=== PATIENT | male | born 1980 | race Two or more races ===

== ENCOUNTER → 2024-05-26 | Outpatient (BNVA) | payer MEDICAID, SELFPAY | END | disposition home or self-care (01) | PROVIDERS: PCP Behavior Technician; Referring Provider Behavior Technician; Visit Provider Urology | DX: N40.1 Benign prostatic hyperplasia with lower urinary tract symptoms (principal); N13.8 Other obstructive and reflux uropathy; Z80.42 Family history of malignant neoplasm of prostate; Z87.440 Personal history of urinary (tract) infections; E78.1 Pure hyperglyceridemia; I10 Essential (primary) hypertension; E66.9 Obesity, unspecified; Z68.41 Body mass index [BMI] 40.0-44.9, adult; F17.210 Nicotine dependence, cigarettes, uncomplicated | CPT/HCPCS: 81003; 99202; G0463 ==

== ENCOUNTER → 2024-10-07 | Day surgery (SDC) | payer MEDICAID, SELFPAY ==
--- NOTE | 2024-10-06 07:00 | EKG_ITS ---
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 : 1980 Requested By: David Falk Order Number: [id number] Reading MD: David Falk Measurements Intervals Sandy Rate: 67 P: 49 MA: 173 QRS: 56 QRSD: 92 T: 51 QT: 362 QTc: 382 Interpretive Statements SINUS RHYTHM No previous ECG available for comparison /store/S0/[id number]/ecg/[id number].pdf
[2024-10-06 10:47] VITALS: BMI 41.5
[2024-10-06 11:13] LABS: Collection Type, Urine Clean Catch; Squamous Epithelial Cell,Urine 0 /hpf (0-5)
[2024-10-06 12:13] LABS: Basophils # (Auto) 0.1 Thou/mm3 (0.0-0.2); Basophils % (Auto) 1 % (0-2.5); Eosinophils # (Auto) 0.1 Thou/mm3 (0.0-0.5); Eosinophils % (Auto) 2 % (0-10); Hematocrit 45.2 % (41.0-53.0); Hemoglobin 15.6 g/dL (13.5-16.0); Immature Granulocytes % (Auto) 0 % (0-0); Immature Granulocytes Auto 0.03 Thou/mm3 (0.00-0.00); Lymphocytes # (Auto) 3.1 Thou/mm3 (1.0-4.8); Lymphocytes % (Auto) 37 % (10-50); Mean Corpuscular HGB Conc 34.5 g/dl (31.0-37.0); Mean Corpuscular Hemoglobin 30.7 pg (25.0-35.0); Mean Corpuscular Volume 89 fL (80-100); Monocytes # (Auto) 0.7 Thou/mm3 (0.0-0.8); Monocytes % (Auto) 8 % (0-12); Neutrophils # (Auto) 4.4 Thou/mm3 (1.8-7.7); Neutrophils % (Auto) 53 % (37-80); Nucleated Red Blood Cell % 0 /100 WBC (0); Platelet Count 273 Thou/mm3 (140-440); RDW Standard Deviation 41.7 fL (35.1-43.9); Red Blood Count 5.08 Miln/mm3 (4.50-5.90); White Blood Count 8.4 Thou/mm3 (3.8-10.6)
[2024-10-06 12:14] LABS: Bilirubin,Urine Negative (Negative); Blood,Urine Negative (Negative); Clarity,Urine Clear (Clear/Hazy); Color,Urine Lt-Yellow (Lt Yel-Yel); Glucose, Urine Negative (Negative); Ketones,Urine Negative (Negative); Leukocyte Esterase,Urine Negative (Negative); Nitrite,Urine Negative (Negative); PH,Urine 6.5 (5.0-7.0); Protein,Urine Negative (Neg - Trace); RBC,Urine < 1 /hpf (0-3); Urobilinogen,Urine Negative mg/dL (0.0-1.0); WBC,Urine < 1 /hpf (0-5)
[2024-10-06 12:43] LABS: Alanine Aminotransferase 16 U/L (10-49); Albumin, Serum 4.4 gm/dL (3.5-5.0); Albumin/Globulin Ratio 1.5 (1.2-2.2); Alkaline Phosphatase 80 U/L (46-116); Anion Gap 10 (7-16); Aspartate Amino Transferase 14 U/L (0-34); BUN/Creatinine Ratio 10 Ratio (12-20); Bilirubin,Total 0.8 mg/dL (0.3-1.2); Blood Urea Nitrogen 10 mg/dL (9-23); Calcium 9.5 mg/dL (8.3-10.6); Calcium (Corrected) 9.5 mg/dL (8.5-10.1); Carbon Dioxide 26.3 mMol/L (20.0-31.0); Chloride 104 mMol/L (98-107); Estimated Creatinine Clearance 125.8 mL/min (>60); Glucose 91 mg/dL (74-106); Osmolality,Calculated 278 (275-295); Potassium 4.6 mMol/L (3.4-5.1); Sodium 140 mMol/L (136-145); Total Protein 7.4 gm/dL (5.7-8.2); eGFR > 60 See Note
[2024-10-07] VITALS (8 sets, daily range): BP systolic 95–142; BP diastolic 61–88; PULSE 61–74; RESP 12–18; TEMP 36.4–36.6; O2SAT 95–99; BMI 39.8
--- NOTE | 2024-10-07 07:51 | ESHP_ITS ---
RE: JANKI PATEL : 1980 DATE OF ADMISSION: 10/06/2024 HISTORY OF PRESENT ILLNESS: This is a 44-year-old male, who was referred to me with history of right-sided scrotal swelling. The patient has a right-sided scrotal spermatocele and is scheduled to have right spermatocelectomy done. At some point, patient had some blood in the urine. He had a right testis hurting. CT scan of the abdomen and pelvis was negative. PSA is 1.0. PREVIOUS SURGERY: Included right knee operation and right hand operation. SOCIAL HISTORY: He has 4 children. PAST MEDICAL HISTORY: No history of diabetes mellitus. He has a history of hypertension. MEDICATIONS: He takes lisinopril and statin medication. ALLERGIES: NONE KNOWN. CLINICAL EXAMINATION: HEENT: Normal. NECK: Supple. LUNGS: Clear. CARDIOVASCULAR: Heart sounds are normal. ABDOMEN: Soft without any organomegaly. No guarding. No rigidity. EXTREMITIES: Normal. GENITOURINARY: Phallus is normal. Testes are down in the scrotum. Scrotal examination revealed right-sided scrotal spermatocele of 1.5 inches in size. The patient is disturbed with his right scrotal swelling and he is bothered and some symptoms. IMPRESSION: Right scrotal spermatocele. PLAN: Right spermatocelectomy. Planned procedure, risks and complications have been discussed with the patient. The patient has understood them and agreed to proceed. Thank you very much for your kind referral and for allowing me to participate in the management of this patient. cc: Shad Cardenas DT: 17:23:24 TT: 18:49:00 Ref: [id number] - TID: [id number]
[2024-10-07] MEDS: RINGERS LACTATED 1000 ML 1,000 ML 20 ML IV (13:33)
--- NOTE | 2024-10-07 16:40 | SUR.PHASEII ---
pt awake, alert, able to follow commands, breathing unlabored, dressing to scrotum clean, dry, and intact, VS stable, discharge instructions given with son and present, pt and family verbalize understanding of discharge instructions, all questions answered, pt discharged via wheelchair with all belongings and copies of discharge paperwork.
--- NOTE | 2024-10-07 18:42 | ESOP_ITS ---
RE: JANKI PATEL : 1980 DATE OF OPERATION: 10/07/2024 PREOPERATIVE DIAGNOSIS: Right scrotal spermatocele, symptomatic. POSTOPERATIVE DIAGNOSES: Right scrotal spermatocele, symptomatic with prominent appendix of the right testis. PROCEDURE PERFORMED: Right spermatocelectomy with excision and fulguration of the appendix of right testis. ANESTHESIA: General INDICATION: The patient is a 44-year-old male who was referred to me with a history of right-sided scrotal spermatocele, which has been bothering him. He has about 1.5 inches size right scrotal spermatocele above the right testis. The patient was now scheduled to have right spermatocelectomy in view of his symptoms. Planned procedure, risks, and complications have been discussed with the patient. The patient understood them and agreed to proceed. DESCRIPTION OF PROCEDURE: After the patient was brought to the operating table under adequate general anesthesia and supine position, parts were prepped and draped in the usual fashion. A vertical incision was then made over the right scrotum about 3-4 cm long. Skin and subcutaneous tissues were incised. The right testis tunica vaginalis was opened. The testis was delivered from the wound. There was a prominent appendix of the right testis and there was a right scrotal spermatocele about 3-4 cm in size above the right testis. This was carefully excised. Complete hemostasis was obtained. The prominent appendix of the right testis was excised and fulgurated. The testis itself appeared to be normal without any tumors of the testis. Testis was placed back into its normal scrotal sac and the wound was closed in layers with 3-0 chromic catgut sutures. Local anesthetic was injected at the site of skin. Sterile dressing was then applied. The patient was then transferred to the recovery room in satisfactory condition having tolerated the entire procedure well. IMPRESSION: Right-sided scrotal spermatocele. There were several scrotal spermatoceles on the top of the right testis. There was a prominent appendix of the right testis, which was also excised and fulgurated. Sponge count and needle count at the end of the procedure was found to be correct. Estimated blood loss was approximately 3 mL. DT: 15:37:52 TT: 18:40:00 Ref: [id number] - TID: [id number]
== END | disposition home or self-care (01) ==
PROVIDERS: Anesthesiology; PCP Physician Assistant; Referring Provider Surgery; Visit Provider Surgery
PROC: (CPT 54840; principal; 2024-10-07 15:00)
DX: N43.42 Spermatocele of epididymis, multiple (principal); I10 Essential (primary) hypertension; Z01.810 Encounter for preprocedural cardiovascular examination
CPT/HCPCS: 54840; 36415; 80053; 81001; 85025; 93005; A4217; A4649; J0690; J1100; J1885; J2250; J2405; J2704; J3010; J7120; A9270

== ENCOUNTER 2024-10-09 21:38 | Emergency (ER) | payer MEDICAID, SELFPAY ==
[2024-10-09 21:40] VITALS: BMI 39.7
[2024-10-09 23:07] VITALS: BP 160/108; PULSE 84; RESP 18; TEMP 37; O2SAT 96
--- NOTE | 2024-10-09 23:30 | EDNOTE_ITS ---
ED Male Genitalurinary RME/HPI General Chief complaint: Urogenital-Male Stated complaint: RT KEV PAUL S/P SX 10/07 Time Seen by Provider: 10/09/24 23:20 Arrival date/time: 10/09/24 21:38 44M with history of HTN and testicular surgery 2 days ago presents to ED with swelling on penis. Patient has been urinating w/o issue and denies pain. Patient has been taking prescribed cipro. Limitations: no limitations Related Data Home Medications ?Medication ?Instructions ?Recorded ?Confirmed lisinopril 10 mg tablet 10 mg PO QDAY 05/26/2410/07 semaglutide (weight loss) 1 mg/0.5 1 mg subcut QWEEK 1 07/26/23 10/06/24 mL subcutaneous pen injector (Wegovy) simvastatin 20 mg tablet 20 mg PO QDAY 05/26/2410/07 Previous Rx's ?Medication ?Instructions ?Recorded ciprofloxacin HCl 500 mg tablet 500 mg PO BID #14 tabs 10/07/24 (Cipro) hydrocodone 5 mg-acetaminophen 325 1 tab PO Q6H PRN pa in #30 tabs 10/07/24 mg tablet Allergies Allergy/AdvReac Type Severity Reaction Status Date / Time No Known Drug Allergies Allergy Verified 10/07/24 13:45 Review of Systems Review of Systems Systems Reviewed: All systems reviewed, normal except as documented Constitutional Constitutional: Reports system reviewed and no additional complaints, except as documented, Denies fever(s) and Denies headache(s) ENT Ears, Nose, Mouth, and Throat: Denies disequilibrium and Denies headache(s) Cardiovascular Cardiovascular: Reports system reviewed and no additional complaints, except as documented, Denies chest pain and Denies dyspnea Respiratory Respiratory: Reports system reviewed and no additional complaints, except as documented, Denies cough and Denies dyspnea Gastrointestinal Gastrointestinal: Reports system reviewed and no additional complaints, except as documented, Denies abdominal pain, Denies nausea and Denies vomiting Genitourinary Genitourinary: Reports as per HPI and Reports other (genital swelling) Neurologic Neurologic: Reports system reviewed and no additional complaints, except as documented, Denies confusion, Denies disequilibrium and Denies headache(s) Psychiatric Psychiatric: Denies confusion Past Medical History Past Medical History NEUROLOGIC: Negative Neurological Disorders or Seizures CARDIAC: Positive Cardiac Disorders, Hypercholesterolemia and Hypertension; Negative Congestive Heart Failure RESPIRATORY: Negative Chronic Obstructive Pulmonary Disease (COPD) GASTROINTESTINAL: Positive Gastrointestinal Disorders and Obesity; Negative Hepatitis GENITOURINARY: Negative Genitourinary Disorders or Renal Disease MUSCULOSKELETAL: Negative Musculoskeletal Disorders or Osteomyelitis ENDOCRINE: Negative Endocrine Disorders, Diabetes Mellitus Type 1 or Diabetes Mellitus Type 2 HEMATOLOGIC: Negative Blood Disorders OTHER HISTORY: Positive Hospitalization and Chicken Pox; Negative Autoimmune Disease, Shingles, Blood Transfusions, Anesthesia Reactions or Cancer Family History FAMILY HISTORY: Positive Family Cardiac Disorders and Family Surgery; Negative Family Psychiatric Problems, Family Respiratory Disorders, Family Gastrointestinal Problems, Family Cancer or Family Anesthesia Reaction Surgical History SURGICAL: Positive Arthroscopy (right knee tendon repair) Social History SMOKING STATUS: Current every day smoker ED Exam General Limitations: Present no limitations General appearance: Present alert and in no apparent distress Head Head exam: Present atraumatic Eye Eye exam: Present normal appearance, PERRL and EOMI ENT ENT exam: Present normal exam, normal oropharynx and mucous membranes moist Neck Neck exam: Present normal inspection, full ROM and trachea midline Chest Chest inspection: Present normal inspection and symmetric chest wall rise Respiratory Respiratory exam: Present normal lung sounds bilaterally Cardiovascular Cardiovascular exam: Present regular rate, normal rhythm and normal heart sounds Abdominal Exam Abdominal exam: Present soft and normal bowel sounds Extremities Exam Extremities exam: Present normal inspection and full ROM Back Exam Back exam: Present normal inspection and full ROM Neurological Exam Neurological exam: Present alert, oriented X3 and CN II-XII intact Psychiatric Psychiatric exam: Present normal affect and normal mood Skin Skin exam: Present warm, dry, intact and normal color Course Quality Measures none Orders Category Date Time Status Fluconazole [Diflucan] Med 10/09/24 23:21 Once 150 mg PO X1 ONE Vital Signs Vital signs: Vital Signs Temperature 98.6 F 10/09/24 23:07 Pulse Rate 84 10/09/24 23:07 Respiratory Rate 18 10/09/24 23:07 Blood Pressure 160/108 H 10/09/24 23:07 Pulse Oximetry (%) 96 10/09/24 23:07 Oxygen Delivery Method Room Air 10/09/24 23:07 O2 at 96% on RA and WNLs Urogenital - Male MDM Narrative MDM Narrative:: 44M with history of HTN and testicular surgery 2 days ago presents to ED with swelling on penis. Patient has been urinating w/o issue and denies pain. Patient has been taking prescribed cipro. Physical exam with supervisor photocomposition reveals no gross swelling or tenderness on penis shaft. Patient is afebrile, calm, and alert. Will give single dose of fungal prophylaxis. Patient data External records reviewed:: [facility] previous records Clinical information provided by:: patient Social determinants that could affect healthcare access:: none Patient has the following chronic illnesses:: HTN How is presenting disease/condition affected by chronic disease/condition?: uneffected by Evaluation data The following diagnostics were reviewed and interpreted by me:: other (specify) (none) Lab and/or radiology exams considered but not ordered:: not ordered Interpretation Summary: n/a Medications / Prescriptions Medications or Prescriptions considered but not ordered:: ordered Medication administrations:: Medication Administration History Fluconazole (Fluconazole 150 Mg Tablet) 150 mg PO X1 ONE Stop: 10/09/24 23:22 above Consultations Consultation(s) initiated? (list below): No Diagnosis Urogenital Male Differential Diagnosis: urinary tract infection, priapism, urethritis, epididymitis, genital herpes simplex, prostatitis, acute retention of urine, inguinal hernia and other (postop exam) Most likely diagnosis given after review of the tests above:: postop exam Admission Indicated Admission indicated?: not indicated Admission Request Was there a request for admission?: No Disposition Plan Disposition Plan: Discharge Discharge Attestation Discharge Attestation: The patient and all family members were given an opportunity to ask questions and understood the discharge instructions. Discharge instructions specifically effects, indications for sooner follow up or return to the emergency department, and the expected course of current diagnosis. Patient condition: Stable Discharge Plan Plan Patient Disposition: HOME (Self Care) Disposition Comment: Stable Prescriptions/Referrals Prescriptions/Med Rec: No Action simvastatin 20 mg tablet 20 mg PO QDAY lisinopril 10 mg tablet 10 mg PO QDAY Wegovy 1 mg/0.5 mL pen injector 1 mg subcut QWEEK Rx Instructions: administer weeks 9 through 12 of therapy hydrocodone-acetaminophen 5-325 mg tablet 1 tab PO Q6H MDD 4 PRN (Reason: pain) Qty: 30 0RF ciprofloxacin HCl [Cipro] 500 mg tablet 500 mg PO BID Qty: 14 0RF Problem List Clinical Impression: Postoperative examination Patient/Caregiver Discharge Instructions Additional Instructions: Please follow-up with PCP within 24-48 hours and return immediately if symptoms worsen. Follow-up with surgeon. Continue taking ABX. Print Language: Uruguayan Stand Alone Forms: Patient Portal Info Letter JS/HEAD OF MAINTENANCE Supervising Physician PA/HEAD OF MAINTENANCE Supervising Physician: Dr. Torres
[2024-10-09] MEDS: FLUCONAZOLE 150 MG TABLET PO (23:39)
== END 2024-10-09 23:45 | disposition home or self-care (01) ==
LOC: SERX 23:49
PROVIDERS: Emergency Provider Emergency Medicine; PCP Behavior Technician
DX: Z09 Encounter for follow-up examination after completed treatment for conditions other than malignant neoplasm (principal); Z98.890 Other specified postprocedural states; I10 Essential (primary) hypertension; E78.00 Pure hypercholesterolemia, unspecified; F17.200 Nicotine dependence, unspecified, uncomplicated
CPT/HCPCS: 99282; A9270